=== PATIENT | female | born 1990 | race Hispanic/Latino ===

== ENCOUNTER → 2017-09-09 | Outpatient (REF) | payer OTHER | LOC: M SFHCLERA 12:35 | DX: R35.0 Frequency of micturition (principal) | CPT/HCPCS: 87086 ==

== ENCOUNTER 2022-05-12 12:08 | Emergency (ER) | payer OTHER ==
[~2022-05-12] VITALS: Ht 157.5 cm; Wt 62.5 kg
[2022-05-12 12:09] VITALS: BP 115/66
[2022-05-12] MEDS ORDERED: POLYSOL OD (16:25)
[2022-05-12] MEDS ORDERED: BACT800T5 PO (16:25)
== END 2022-05-12 17:05 | disposition home or self-care (01) ==
LOC: M ED 12:08
DX: H01.001 Unspecified blepharitis right upper eyelid (principal); Z88.1 Allergy status to other antibiotic agents; Z88.8 Allergy status to other drugs, medicaments and biological substances

== ENCOUNTER 2022-05-12 22:04 | Emergency (ER) | payer OTHER ==
[~2022-05-12 22:04] MED LIST: BACT800T5 PO; POLYSOL OD
[2022-05-12 22:15] VITALS: BP 119/71
== END 2022-05-13 01:20 | disposition left against medical advice (07) ==
LOC: M ED 22:04 → EDBD 22:04 → M ED 05-13 01:20
DX: Z53.29 Procedure and treatment not carried out because of patient's decision for other reasons (principal)

== ENCOUNTER 2023-06-26 20:32 | Outpatient (CLI) | payer OTHER ==
[~2023-06-26] VITALS: Ht 157.5 cm; Wt 64.4 kg
[2023-06-26] MEDS ORDERED: ACET325C5 PO (20:47)
[2023-06-26] MEDS ORDERED: HOME MED LIST COMPLETE! XX SCH (20:50)
[2023-06-26 20:56] VITALS: BP 126/73
== END 2023-06-26 22:06 | disposition home or self-care (01) ==
LOC: M LDO 20:32
PROVIDERS: ATTEND Obstetrics & Gynecology
DX: O34.522 Maternal care for prolapse of gravid uterus, second trimester (principal); O99.612 Diseases of the digestive system complicating pregnancy, second trimester; K59.00 Constipation, unspecified; Z3A.25 25 weeks gestation of pregnancy; Z88.1 Allergy status to other antibiotic agents; Z88.8 Allergy status to other drugs, medicaments and biological substances; O34.219 Maternal care for unspecified type scar from previous cesarean delivery
CPT/HCPCS: 59025; G0463

== ENCOUNTER 2023-07-17 19:42 | Outpatient (CLI) | payer OTHER ==
[~2023-07-17] VITALS: Ht 157.5 cm; Wt 65.9 kg
[~2023-07-17 19:42] MED LIST changes: +ACET325C5 PO
[2023-07-17 19:55] VITALS: BP 119/65
[2023-07-17] MEDS ORDERED: PRENTAB9 PO (20:00)
[2023-07-17] MEDS ORDERED: HOME MED LIST COMPLETE! XX SCH (20:00)
== END 2023-07-17 20:34 | disposition home or self-care (01) ==
LOC: M LDO 19:42
PROVIDERS: ATTEND Obstetrics & Gynecology
DX: O26.893 Other specified pregnancy related conditions, third trimester (principal); R10.2 Pelvic and perineal pain; O99.283 Endocrine, nutritional and metabolic diseases complicating pregnancy, third trimester; E86.0 Dehydration; O34.219 Maternal care for unspecified type scar from previous cesarean delivery; Z3A.28 28 weeks gestation of pregnancy; Z88.1 Allergy status to other antibiotic agents; Z88.8 Allergy status to other drugs, medicaments and biological substances
CPT/HCPCS: 59025; G0463

== ENCOUNTER 2023-09-11 14:23 | Outpatient (CLI) | payer OTHER ==
[~2023-09-11] VITALS: Ht 157.5 cm; Wt 68.4 kg
[~2023-09-11 14:23] MED LIST changes: +PRENTAB9 PO
[2023-09-11 14:40] VITALS: BP 130/84; O2SAT 98
[2023-09-11] MEDS ORDERED: IRON65TA2 PO (14:47)
[2023-09-11] MEDS ORDERED: VITA500C24 PO (14:47)
[2023-09-11] MEDS ORDERED: HOME MED LIST COMPLETE! XX SCH (14:50)
== END 2023-09-11 15:15 | disposition home or self-care (01) ==
LOC: M LDO 14:23
PROVIDERS: ATTEND Obstetrics & Gynecology
DX: O47.03 False labor before 37 completed weeks of gestation, third trimester (principal); Z3A.36 36 weeks gestation of pregnancy; O34.219 Maternal care for unspecified type scar from previous cesarean delivery; Z88.1 Allergy status to other antibiotic agents; Z88.8 Allergy status to other drugs, medicaments and biological substances
CPT/HCPCS: 59025; G0463

== ENCOUNTER 2023-09-28 07:05 | Inpatient (IN) | payer OTHER ==
[2023-09-28] VITALS (8 sets, daily range): BP systolic 117–138; BP diastolic 58–83; O2SAT 96–98
[~2023-09-28] VITALS: Ht 157.5 cm; Wt 65.4 kg
[~2023-09-28 07:05] MED LIST changes: +IRON65TA2 PO; +VITA500C24 PO
[2023-09-28] MEDS ORDERED: METHYLERGONOVINE MALEATE 0.2MG/ML 1ML VIAL IM PRN (07:40)
[2023-09-28] MEDS ORDERED: LR 1,000 ML IV SCH (07:40)
[2023-09-28] MEDS ORDERED: CARBOPROST TROMETHAMINE 250 MCG/ML AMP IM PRN (07:40)
[2023-09-28] MEDS ORDERED: BICITRA 30ML SOLN UDC PO ONE (07:40)
[2023-09-28] MEDS ORDERED: ceFAZolin SOD 2 GM in IV 1 EA IV ONE ×2 (07:40→12:05)
[2023-09-28] MEDS ORDERED: TRANEXAMIC ACID INJection 1,000 MG in NS 100 ML IV PRN (07:40)
[2023-09-28] MEDS ORDERED: LACTATED RINGER'S 1000 ML IV STA (07:40)
[2023-09-28 08:14] LABS: HEMATOCRIT 36.9 % (36.0-47.0); HEMOGLOBIN 12.6 g/dl (12.0-15.5); MEAN CORPUSCULAR HEMOGLOBIN 30.8 pg (27.0-33.0); MEAN CORPUSCULAR HGB CONC 34.1 g/dl (32.0-36.5); MEAN CORPUSCULAR VOLUME 90.2 fl (80.0-96.0); PLATELET COUNT, AUTOMATED 168 10^3/uL (150-450); RED BLOOD COUNT 4.09 10^6/uL (4.00-5.40); WHITE BLOOD COUNT 8.6 10^3/uL (4.0-10.0)
[2023-09-28] MEDS ORDERED: ONDANSETRON 4MG 2ML VIAL As Ordered ONE (10:41)
[2023-09-28] MEDS ORDERED: KETOROLAC 60MG 2ML VIAL As Ordered ONE (10:41)
[2023-09-28] MEDS ORDERED: PHENYLephrine 500MCG 5ML (100MCG/ML) SYRINGE As Ordered ONE (10:41)
[2023-09-28] MEDS ORDERED: ACETAMINOPHEN 1000MG 100ML IV BAG As Ordered ONE (10:41)
[2023-09-28] MEDS ORDERED: OXYTOCIN 30UNITS IN 0.9% NaCl 500ML IV BAG As Ordered ONE ×2 (10:41→11:27)
[2023-09-28] MEDS ORDERED: MORPHINE PRES-FREE INJ 10 MG/10 ML VIAL As Ordered ONE (10:41)
[2023-09-28] MEDS ORDERED: ePHEDrine SULFATE 25 MG/5 ML(5MG/ML) SYRINGE As Ordered ONE (10:41)
[2023-09-28] MEDS ORDERED: TRANEXAMIC ACID 100 MG/ML 10ML VIAL As Ordered ONE ×2 (10:52→12:12)
[2023-09-28] MEDS ORDERED: ceFAZolin 2 GM/D5W 50 ML IV BAG As Ordered ONE (11:45)
[2023-09-28 11:48] LABS: HEMATOCRIT 33.6 % (36.0-47.0); HEMOGLOBIN 11.1 g/dl (12.0-15.5)
[2023-09-28 11:59] LABS: INR 0.98; PARTIAL THROMBOPLASTIN TIME 23.1 SECONDS (24.8-34.2); PROTHROMBIN TIME 12.7 SECONDS (12.5-14.5)
[2023-09-28] MEDS ORDERED: SIMETHICONE 80MG CHEW TAB PO PRN (12:50)
[2023-09-28] MEDS ORDERED: METOCLOPRAMIDE INJ 10MG/2ML VIAL IV PRN ×2 (12:50→13:35)
[2023-09-28] MEDS ORDERED: MORPHINE 2 MG/ML 1ML VIAL IV PRN (12:50)
[2023-09-28] MEDS ORDERED: oxyCODONE 5MG TAB PO PRN ×3 (12:50→13:35)
[2023-09-28] MEDS ORDERED: METHYLERGONOVINE MALEATE 0.2 MG TAB PO PRN (12:50)
[2023-09-28] MEDS ORDERED: RHOGAM 300MCG (1500IU) INJ IM SCH (12:50)
[2023-09-28] MEDS ORDERED: ONDANSETRON 4MG 2ML VIAL IV PRN ×2 (12:50→13:35)
[2023-09-28] MEDS ORDERED: MOM 30ML SUSPENSION UDC PO PRN (12:50)
[2023-09-28] MEDS ORDERED: OXYTOCIN DRIP 30 UNITS in IV 1 EA IV SCH ×4 (12:50)
[2023-09-28] MEDS ORDERED: **NOTE PATIENT COMMENT** MISC XX SCH (13:35)
[2023-09-28] MEDS ORDERED: NALOXONE INJ 0.4MG/1ML VIAL IV PRN ×2 (13:35)
[2023-09-28] MEDS: SLF 3 ML SYR IV SCH ×2 (13:35→20:38)
[2023-09-28] MEDS ORDERED: MEPERIDINE 25 MG/ML 1ML VIAL IV PRN (13:35)
[2023-09-28] MEDS ORDERED: HYDROMORPHONE HCL 0.5 MG/ 0.5 ML SYRINGE IV PRN (13:35)
[2023-09-28] MEDS ORDERED: fentaNYL 100 MCG/2 ML INJECTION IV PRN (13:35)
[2023-09-28] MEDS ORDERED: METOCLOPRAMIDE INJ 10MG/2ML VIAL As Ordered ONE (13:46)
[2023-09-28] MEDS: LR 1,000 ML IV SCH ×2 (13:51→20:32)
[2023-09-28] MEDS: KETOROLAC 30 MG/ML 1ML VIAL IV SCH ×2 (17:53→23:35)
[2023-09-28] MEDS: ACETAMINOPHEN 500 MG TAB PO SCH ×2 (17:54→23:35)
[2023-09-28] MEDS: DOCUSATE SODIUM 100MG CAPSULE PO SCH (20:32)
[2023-09-29] VITALS (7 sets, daily range): BP systolic 106–119; BP diastolic 55–60; TEMP 98.1; O2SAT 95–100
[2023-09-29] MEDS: LR 1,000 ML IV SCH (05:23)
[2023-09-29] MEDS: KETOROLAC 30 MG/ML 1ML VIAL IV SCH (05:23)
[2023-09-29] MEDS: ACETAMINOPHEN 500 MG TAB PO SCH ×3 (05:24→18:36)
[2023-09-29] MEDS: SLF 3 ML SYR IV SCH (05:35)
[2023-09-29 06:30] LABS: HEMATOCRIT 28.5 % (36.0-47.0); HEMOGLOBIN 9.5 g/dl (12.0-15.5); MEAN CORPUSCULAR HEMOGLOBIN 30.6 pg (27.0-33.0); MEAN CORPUSCULAR HGB CONC 33.3 g/dl (32.0-36.5); MEAN CORPUSCULAR VOLUME 91.9 fl (80.0-96.0); PLATELET COUNT, AUTOMATED 122 10^3/uL (150-450); WHITE BLOOD COUNT 11.5 10^3/uL (4.0-10.0)
[2023-09-29] MEDS: DOCUSATE SODIUM 100MG CAPSULE PO SCH ×2 (08:19→20:10)
[2023-09-29] MEDS: PRENATAL VITAMINS CHEWABLE TABLET PO SCH (08:19)
[2023-09-29] MEDS: FERROUS SULFATE 325MG TAB PO SCH (08:19)
[2023-09-29] MEDS: ASCORBIC ACID 500 MG TAB PO SCH (08:19)
[2023-09-29] MEDS ORDERED: PRENATAL VITAMINS CHEWABLE TABLET PO SCH (09:00)
[2023-09-29] MEDS ORDERED: METOCLOPRAMIDE INJ 10MG/2ML VIAL IV PRN (13:35)
[2023-09-29] MEDS: IBUPROFEN 800 MG TAB PO SCH ×2 (14:11→20:10)
[2023-09-30] MEDS: ACETAMINOPHEN 500 MG TAB PO SCH ×2 (00:19→05:05)
[2023-09-30 02:00] VITALS: BP 122/62; O2SAT 97
[2023-09-30] MEDS: IBUPROFEN 800 MG TAB PO SCH (05:05)
[2023-09-30 05:44] VITALS: BP 117/63; O2SAT 98
[2023-09-30] MEDS: DOCUSATE SODIUM 100MG CAPSULE PO SCH (08:33)
[2023-09-30] MEDS: FERROUS SULFATE 325MG TAB PO SCH (08:33)
[2023-09-30] MEDS: PRENATAL VITAMINS CHEWABLE TABLET PO SCH (08:34)
[2023-09-30] MEDS: ASCORBIC ACID 500 MG TAB PO SCH (08:34)
[2023-09-30 08:42] VITALS: BP 117/63; TEMP 97; O2SAT 98
[2023-09-30] MEDS ORDERED: MEASLES,MUMPS,RUBELLA VACCINE INJ (MMR-II) SC.IMMUN ONE (09:00)
[2023-09-30] MEDS ORDERED: IBUP80TA PO (09:03)
[2023-09-30] MEDS ORDERED: FERR1TAB8 PO (09:03)
[2023-09-30] MEDS ORDERED: COLA100C5 PO (09:03)
[2023-09-30] MEDS ORDERED: OXYC-517 PO (09:03)
[2023-09-30] MEDS ORDERED: ACET-683 PO (09:03)
[2023-09-30 10:00] VITALS: BP 125/68; O2SAT 98
== END 2023-09-30 12:20 | disposition home or self-care (01) | DRG 773 ==
LOC: M LDI 07:05 → M OBS 14:00
PROVIDERS: ADMIT Obstetrics & Gynecology; ATTEND Obstetrics & Gynecology
PROC: 30233N1 Transfusion of Nonautologous Red Blood Cells into Peripheral Vein, Percutaneous Approach (ICD-10-PCS; 2023-09-28)
PROC: 10D00Z0 Extraction of Products of Conception, High, Open Approach (ICD-10-PCS; principal; 2023-09-28 09:45)
DX: O34.211 Maternal care for low transverse scar from previous cesarean delivery (principal); Z37.0 Single live birth; Z3A.39 39 weeks gestation of pregnancy; O69.81X0 Labor and delivery complicated by cord around neck, without compression, not applicable or unspecified; O67.8 Other intrapartum hemorrhage

== ENCOUNTER 2023-10-01 20:08 | Emergency (ER) | payer OTHER ==
[~2023-10-01] VITALS: Ht 157.5 cm; Wt 64.5 kg
[~2023-10-01 20:08] MED LIST changes: +ACET-683 PO; +COLA100C5 PO; +FERR1TAB8 PO; +IBUP80TA PO; +OXYC-517 PO
[2023-10-01 23:15] LABS: BASO % 0.4 % (0.0-1.0); EOS # 0.1 10^3/uL (0.0-0.5); EOS % 1.2 % (0.0-3.0); HEMATOCRIT 30.7 % (36.0-47.0); HEMOGLOBIN 10.2 g/dl (12.0-15.5); LYMPH # 1.9 10^3/uL (1.5-5.0); LYMPH % 17.1 % (24.0-44.0); MEAN CORPUSCULAR HEMOGLOBIN 30.9 pg (27.0-33.0); MEAN CORPUSCULAR HGB CONC 33.2 g/dl (32.0-36.5); MONO # 0.7 10^3/uL (0.0-0.8); MONO % 6.2 % (2.0-8.0); NEUTROPHILS # 8.4 10^3/uL (1.5-8.5); NEUTROPHILS % 74.5 % (36.0-66.0); PLATELET COUNT, AUTOMATED 190 10^3/uL (150-450); WHITE BLOOD COUNT 11.2 10^3/uL (4.0-10.0)
[2023-10-01 23:28] LABS: LIPASE 23 U/L (12-53)
[2023-10-01 23:29] LABS: INR 0.94; PROTHROMBIN TIME 12.3 SECONDS (12.5-14.5)
[2023-10-01 23:30] LABS: ALBUMIN 2.2 G/DL (3.2-5.2); ALKALINE PHOSPHATASE 122 U/L (46-116); ALT/SGPT 15 U/L (7.0-40); AST/SGOT 27 U/L (<34); BILIRUBIN,DIRECT < 0.1 MG/DL (<0.4); BILIRUBIN,TOTAL 0.3 MG/DL (0.3-1.2); BLOOD UREA NITROGEN 6 MG/DL (9-23); CALCIUM LEVEL 8.2 MG/DL (8.5-10.1); CARBON DIOXIDE LEVEL 28 MMOL/L (20-31); CHLORIDE LEVEL 106 MMOL/L (98-107); CK-MB VALUE MASS < 1.0 NG/ML (<3.6); CPK CREATINE PHOSPHOKINASE 112 U/L (34-145); CREATININE FOR GFR 0.44 MG/DL (0.55-1.30); GLOMERULAR FILTRATION RATE > 60.0 (>60); GLUCOSE, FASTING 82 MG/DL (60-100); MB/CK RELATIVE INDEX 0.89 (< OR =4); PARTIAL THROMBOPLASTIN TIME 26.6 SECONDS (24.8-34.2); POTASSIUM SERUM 3.5 MMOL/L (3.5-5.1); SODIUM LEVEL 140 MMOL/L (136-145); TOTAL PROTEIN 5.9 G/DL (5.7-8.2)
[2023-10-01 23:32] LABS: FREE T4 0.95 NG/DL (0.89-1.76); THYROID STIMULATING HORMONE 2.768 uIU/ML (0.55-4.78)
[2023-10-01] MEDS ORDERED: ISOVUE-370 76% 100ML VIAL As Ordered ONE (23:53)
[2023-10-01] MEDS ORDERED: ONDANSETRON 4MG 2ML VIAL As Ordered ONE (23:57)
[2023-10-02] VITALS: BP 122/68; TEMP 98; O2SAT 99
[2023-10-02] MEDS ORDERED: ONDANSETRON 4MG 2ML VIAL IV ONE
[2023-10-02 00:55] LABS: CK-MB VALUE MASS < 1.0 NG/ML (<3.6)
[2023-10-02 00:56] LABS: CPK CREATINE PHOSPHOKINASE 107 U/L (34-145); MB/CK RELATIVE INDEX 0.93 (< OR =4)
== END 2023-10-02 03:11 | disposition home or self-care (01) ==
LOC: M ED 20:08
DX: R07.9 Chest pain, unspecified (principal); Z79.810 Long term (current) use of selective estrogen receptor modulators (SERMs); Z79.899 Other long term (current) drug therapy; Z79.1 Long term (current) use of non-steroidal anti-inflammatories (NSAID)
CPT/HCPCS: 71275; 74177; 80048; 80076; 82550; 82553; 83690; 84439; 84443; 84484; 85025; 85610; 85730; 93005; 93041; 93971; 94760; 96374; 99284; J2405; Q9967

== ENCOUNTER 2023-10-09 09:37 | Emergency (ER) | payer OTHER ==
[~2023-10-09] VITALS: Ht 157.5 cm; Wt 60.9 kg
[2023-10-09] MEDS: PERCOCET 5MG/325MG TAB PO ONE (12:00)
[2023-10-09] MEDS: ACETAMINOPHEN 500 MG TAB PO ONE (12:09)
[2023-10-09 12:25] LABS: LIPASE 21 U/L (12-53)
[2023-10-09 12:27] LABS: ALBUMIN 3.3 G/DL (3.2-5.2); ALKALINE PHOSPHATASE 114 U/L (46-116); ALT/SGPT 22 U/L (7.0-40); AST/SGOT 32 U/L (<34); BILIRUBIN,DIRECT < 0.1 MG/DL (<0.4); BILIRUBIN,TOTAL 0.3 MG/DL (0.3-1.2); BLOOD UREA NITROGEN 9 MG/DL (9-23); CARBON DIOXIDE LEVEL 30 MMOL/L (20-31); CHLORIDE LEVEL 104 MMOL/L (98-107); CREATININE FOR GFR 0.49 MG/DL (0.55-1.30); GLOMERULAR FILTRATION RATE > 60.0 (>60); GLUCOSE, FASTING 85 MG/DL (60-100); POTASSIUM SERUM 4.6 MMOL/L (3.5-5.1); SODIUM LEVEL 141 MMOL/L (136-145); TOTAL PROTEIN 7.4 G/DL (5.7-8.2)
[2023-10-09 12:30] LABS: BASO % 0.5 % (0.0-1.0); EOS # 0.1 10^3/uL (0.0-0.5); EOS % 1.4 % (0.0-3.0); HEMATOCRIT 39.7 % (36.0-47.0); HEMOGLOBIN 12.8 g/dl (12.0-15.5); LYMPH # 1.6 10^3/uL (1.5-5.0); LYMPH % 20.1 % (24.0-44.0); MEAN CORPUSCULAR HEMOGLOBIN 30.3 pg (27.0-33.0); MEAN CORPUSCULAR HGB CONC 32.2 g/dl (32.0-36.5); MEAN CORPUSCULAR VOLUME 94.1 fl (80.0-96.0); MONO # 0.4 10^3/uL (0.0-0.8); MONO % 5.5 % (2.0-8.0); NEUTROPHILS # 5.8 10^3/uL (1.5-8.5); NEUTROPHILS % 72.1 % (36.0-66.0); PLATELET COUNT, AUTOMATED 332 10^3/uL (150-450); RED BLOOD COUNT 4.22 10^6/uL (4.00-5.40); WHITE BLOOD COUNT 8.1 10^3/uL (4.0-10.0)
[2023-10-09] MEDS ORDERED: ISOVUE-370 76% 100ML VIAL As Ordered ONE (13:01)
[2023-10-09 14:35] VITALS: BP 118/75; TEMP 98; O2SAT 100
== END 2023-10-09 14:35 | disposition home or self-care (01) ==
LOC: M ED 09:37
DX: K42.9 Umbilical hernia without obstruction or gangrene (principal); Z88.1 Allergy status to other antibiotic agents; Z88.8 Allergy status to other drugs, medicaments and biological substances
CPT/HCPCS: 36415; 74177; 80048; 80076; 83690; 85025; 99283; Q9967

== ENCOUNTER 2024-02-20 10:55 | Emergency (ER) | payer OTHER ==
[~2024-02-20] VITALS: Ht 157.5 cm; Wt 54.9 kg
[2024-02-20 13:06] VITALS: BP 108/66; TEMP 97.3; O2SAT 99
== END 2024-02-20 13:07 | disposition home or self-care (01) ==
LOC: M ED 10:55
DX: R07.0 Pain in throat (principal); Z88.8 Allergy status to other drugs, medicaments and biological substances; Z88.1 Allergy status to other antibiotic agents